=== PATIENT | female | born 1995 | race Caucasian/White ===

== ENCOUNTER 2020-12-30 14:06 | Emergency (ER) | payer OTHER | END 2020-12-30 15:23 | disposition home or self-care (01) | LOC: FER 14:06 | DX: S80.11XA Contusion of right lower leg, initial encounter (principal); W55.12XA Struck by horse, initial encounter; Y92.009 Unspecified place in unspecified non-institutional (private) residence as the place of occurrence of the external cause | CPT/HCPCS: 99283 ==